=== PATIENT | male | born 1945 ===

== ENCOUNTER 2018-07-05 16:48 | Emergency (ER) | payer SELFPAY ==
[2018-07-05 16:59] VITALS: BP 162/71; PULSE 68; RESP 18; TEMP 99.5; O2SAT 99
--- NOTE | 2018-07-05 17:32 | C.PDOC ---
History Of Present Illness 72 y/o male presents to the ER complaining of mild tenderness to rectal region which has been present for the past 1 week. Patient states that he did not have any rectal bleeding. Denies having history of hemorrhoids. Time Seen by Provider: 07/05/18 17:16 Chief Complaint (Nursing): GI Problem History Per: Patient History/Exam Limitations: no limitations Onset/Duration Of Symptoms: Days Current Symptoms Are (Timing): Still Present Severity: Moderate Past Medical History Reviewed: Historical Data, Nursing Documentation, Vital Signs Vital Signs: Last Vital Signs Temp 99.5 F 07/05/18 16:56 Pulse 68 07/05/18 16:56 Resp 18 07/05/18 16:56 BP 162/71 H 07/05/18 16:56 Pulse Ox 99 07/05/18 16:56 - Medical History PMH: HTN Other Surgeries: Hx of surgeries Family History: States: No Known Family Hx - Social History Hx Alcohol Use: No Hx Substance Use: No Review Of Systems Except As Marked, All Systems Reviewed And Found Negative. Constitutional: Negative for: Fever, Chills Gastrointestinal: Positive for: Rectal Pain. Negative for: Nausea, Vomiting, Abdominal Pain Genitourinary: Negative for: Dysuria, Hematuria Physical Exam - Physical Exam Appears: Non-toxic, No Acute Distress, Other (obese, male) Skin: Normal Color, Warm, Dry Head: Atraumatic, Normacephalic Eye(s): bilateral: Normal Inspection Nose: Normal Oral Mucosa: Moist Neck: Supple Chest: Symmetrical Cardiovascular: Rhythm Regular Respiratory: Normal Breath Sounds, No Rales, No Rhonchi, No Wheezing Gastrointestinal/Abdominal: Normal Exam, Soft, No Tenderness, No Guarding, No Rebound Rectal: Hemorrhoids (external hemorrhoids, nontender, no bleeding, no thrombos is) Neurological/Psych: Oriented x3, Normal Speech ED Course And Treatment O2 Sat by Pulse Oximetry: 99 (RA) Pulse Ox Interpretation: Normal Medical Decision Making Medical Decision Making: external hemorroids no bleeding no pain no s/s of anemia ok for opt f/u diet/suppositories educated Disposition Doctor Will See Patient In The: Office Counseled Patient/Family Regarding: Studies Performed, Diagnosis - Disposition Referrals: [facility] [Outside] [facility] [Outside] [facility] [Outside] [facility] [Outside] Disposition: HOME/ ROUTINE Disposition Time: 17:31 Condition: GOOD Additional Instructions: cremas y suppositorios lakisha Anusol- Busca en la pharmacia SIN RECETA sigue en la [facility] Familiar- Trevor Franklin para hacer jeremy Instructions: Hemorrhoids Forms: [employer] (Polish) Print Language: SLOVENIAN - Clinical Impression Clinical Impression: External hemorrhoids - Scribe Statement The provider has reviewed the documentation as recorded by the Phuciblucinda Asif Provider Attestation: All medical record entries made by the Phucibe were at my direction and personally dictated by me. I have reviewed the chart and agree that the record accurately reflects my personal performance of the history, physical exam, medical decision making, and the department course for this patient. I have also personally directed, reviewed, and agree with the discharge instructions and disposition.
== END 2018-07-05 17:42 | disposition home or self-care (01) ==
LOC: C.ER 16:48
DX: K64.4 Residual hemorrhoidal skin tags (principal); I10 Essential (primary) hypertension